=== PATIENT | female | born 1930 | race Asian ===

== ENCOUNTER 2016-06-10 12:24 | Emergency (ER) | payer OTHER ==
[~2016-06-10] VITALS: Ht 154.9 cm; Wt 51.4 kg
[~2016-06-10 12:24] MED LIST: ACET-48 PO; BACL10TA PO; BESI5OS OU; BIMA2.5OS OP; BRIN10DR OP; CALC3.7S6 NS; HEP5KI SQ; LUBI8CAP PO; PREDAOS OU; TIMO5DRO7 OP; TRAM50TA4 PO
[2016-06-10] MEDS ORDERED: HYDR-4106 PO (12:40)
[2016-06-10] MEDS ORDERED: HYDROCODONE/ACETAMINOPHEN 5-325 MG TABLET PO ONE (12:45)
[2016-06-10 15:04] LABS: APPEARANCE,URINE CLEAR (CLEAR); GLUCOSE, URINE (UA) NEGATIVE (NEGATIVE); KETONES,URINE NEGATIVE (NEGATIVE); LEUKOCYTE ESTERASE ,URINE NEGATIVE (NEGATIVE); OCCULT BLOOD,URINE NEGATIVE (NEGATIVE); PH,URINE 7.5 (5.0-8.0); PROTEIN,URINE NEGATIVE (NEGATIVE)
[2016-06-10 15:07] VITALS: BP 124/73
[2016-06-10 15:08] LABS: RBC,URINE None Seen /HPF (0-2); SQUAMOUS EPITHELIAL CELL,UR Few /LPF (None Seen); WBC,URINE 0-2 /HPF (0-5)
== END 2016-06-10 16:05 | disposition home or self-care (01) ==
LOC: EMS 12:27
DX: M54.5 Low back pain (principal); E78.00 Pure hypercholesterolemia, unspecified; I10 Essential (primary) hypertension; Z88.6 Allergy status to analgesic agent
CPT/HCPCS: 99283

== ENCOUNTER 2016-06-12 11:05 | Emergency (ER) | payer OTHER ==
[~2016-06-12] VITALS: Ht 154.9 cm; Wt 51.4 kg
[~2016-06-12 11:05] MED LIST changes: -ACET-48 PO; -BACL10TA PO; -HEP5KI SQ; +HYDR-4106 PO; -PREDAOS OU; -TIMO5DRO7 OP; -TRAM50TA4 PO
[2016-06-12] MEDS ORDERED: OMEP20 PO (11:41)
[2016-06-12] MEDS ORDERED: CHOL200018 PO (11:41)
[2016-06-12] MEDS ORDERED: PRAV40 PO (11:43)
[2016-06-12] MEDS ORDERED: HYDROCODONE/ACETAMINOPHEN 10-325 MG TABLET PO ONE (12:15)
[2016-06-12 13:03] VITALS: BP 142/78
== END 2016-06-12 14:12 | disposition home or self-care (01) ==
LOC: EMS 11:07
DX: M54.5 Low back pain (principal); G89.29 Other chronic pain; E78.00 Pure hypercholesterolemia, unspecified; I10 Essential (primary) hypertension; Z88.6 Allergy status to analgesic agent; Z88.8 Allergy status to other drugs, medicaments and biological substances
CPT/HCPCS: 99283

== ENCOUNTER → 2016-12-08 | Outpatient (CLI) | payer OTHER ==
[~2016-12-08] MED LIST changes: -BESI5OS OU; -BRIN10DR OP; -CALC3.7S6 NS; +CHOL200018 PO; -LUBI8CAP PO; +OMEP20 PO; +PRAV40TA4 PO
== END | disposition home or self-care (01) ==
LOC: RADPV 11:06
PROVIDERS: ATTEND Internal Medicine
DX: R10.9 Unspecified abdominal pain (principal); Z98.890 Other specified postprocedural states
CPT/HCPCS: 74010

== ENCOUNTER 2017-10-24 14:17 | Emergency (ER) | payer OTHER ==
[~2017-10-24] VITALS: Ht 144.8 cm; Wt 50.0 kg
[2017-10-24 14:24] VITALS: BP 149/82
[2017-10-24] MEDS ORDERED: AMLO-511 PO (14:26)
[2017-10-24 15:16] LABS: BASOPHILS % (AUTO) 0.6 % (0.0-2.0); EOSINOPHILS % (AUTO) 1.9 % (1.0-6.0); HEMATOCRIT 38.3 % (36-46); HEMOGLOBIN 12.5 g/dL (12.0-16.0); LYMPHOCYTES # (AUTO) 2.4 K/uL (1.0-4.8); LYMPHOCYTES % (AUTO) 36.2 % (22.0-44.0); MEAN CORPUSCULAR HEMOGLOBIN 30.1 pg (26.0-34.0); MEAN CORPUSCULAR HGB CONC 32.6 G/dL (31.0-37.0); MEAN CORPUSCULAR VOLUME 93 fL (80-100); MONOCYTES # (AUTO) 0.4 K/uL (0.1-1.0); MONOCYTES % (AUTO) 6.5 % (2.0-9.0); NEUTROPHILS # (AUTO) 3.6 K/uL (1.8-7.7); NEUTROPHILS % (AUTO) 54.8 % (40.0-70.0); PLATELET COUNT (AUTO) 292 K/uL (150-450); RED BLOOD CELL COUNT(AUTO) 4.14 MIL/uL (4.00-5.20); RED CELL DISTRIBUTION WIDTH 14.7 % (11.5-14.5)
[2017-10-24 15:28] LABS: ANION GAP 6 mmol/L (8-16); CALCIUM, TOTAL 10.4 mg/dL (8.8-10.5); CARBON DIOXIDE 30 mmol/L (22-29); CHLORIDE 106 mmol/L (98-107); CREATININE 0.63 mg/dL (0.60-1.30); GLUCOSE,RANDOM 97 mg/dL (70-110); POTASSIUM 3.9 mmol/L (3.5-5.1); SODIUM SERUM 142 mmol/L (136-145); UREA NITROGEN, BLOOD 14 mg/dL (7-18)
[2017-10-24 15:29] LABS: GLOMERULAR FILTR. RATE CALC > 60 mL/min (>60)
[2017-10-24 15:37] LABS: ALANINE AMINOTRANSFERASE 16 U/L (12-78); ALBUMIN 3.3 g/dL (3.4-5.0); ALKALINE PHOSPHATASE 115 U/L (46-116); ASPARTATE AMINOTRANSFERASE 16 U/L (15-37); BILIRUBIN,TOTAL 0.2 mg/dL (0.1-1.0); TOTAL PROTEIN, SERUM 7.3 g/dL (6.4-8.2)
== END 2017-10-24 16:20 | disposition home or self-care (01) ==
LOC: EMS 14:19
DX: I10 Essential (primary) hypertension (principal); E78.00 Pure hypercholesterolemia, unspecified; Z88.8 Allergy status to other drugs, medicaments and biological substances; Z88.6 Allergy status to analgesic agent
CPT/HCPCS: 93005; 99285